=== PATIENT | female | born 1980 | race Caucasian/White ===

== ENCOUNTER 2016-04-11 13:13 | Outpatient (CLI) | payer BC ==
[2015-12-12 11:04] VITALS: BP 131/67
== END 2016-04-11 13:14 ==
LOC: LAB 13:13
PROVIDERS: ATTEND Family Medicine
DX: R73.9 Hyperglycemia, unspecified (principal)
CPT/HCPCS: 36415; 83036

== ENCOUNTER 2016-07-20 08:15 | Outpatient (CLI) | payer BC ==
[2015-12-12 11:04] VITALS: BP 131/67
[2016-07-20 09:36] LABS: eGFR (African) > 60; eGFR (Non-African) > 60
== END 2016-07-20 08:16 ==
LOC: LAB 08:15
PROVIDERS: ATTEND Family Medicine
DX: E11.9 Type 2 diabetes mellitus without complications (principal); E03.9 Hypothyroidism, unspecified
CPT/HCPCS: 36415; 80053; 80061; 83036; 84443

== ENCOUNTER 2016-08-24 18:00 | Outpatient (CLI) | payer BC ==
[2015-12-12 11:04] VITALS: BP 131/67
--- NOTE | 2016-08-24 18:28 | Diagnostic Imaging Report ---
[facility] [address] [facility] [address], [place]. [address] Report Submission Date: Aug 24, 2016 6:19:14 PM CDT Patient Study Name: DEMETRICE LANZA Date: Aug 24, 2016 6:01:46 PM CDT Modality Type: CR Gender: F Description: CHEST : 84 Institution: [facility] Physician: YOSI CEBALLOS Examination: PA and lateral chest. History: Evaluate lung lara. Findings: PA lateral chest demonstrate a normal cardiac and mediastinal silhouette. No focal infiltrate. No effusion. No blunting of the costophrenic margins. Osseous structures are appropriate for age. Impression: No acute process. Electronically signed on Aug 24, 2016 6:19:14 PM CDT by: Case LEYVA
== END 2016-08-24 18:02 ==
LOC: RAD 18:00
PROVIDERS: ATTEND Physician Assistant
DX: R05 Cough (principal)
CPT/HCPCS: 71020

== ENCOUNTER 2017-03-08 14:19 | Outpatient (CLI) | payer BC ==
[2015-12-12 11:04] VITALS: BP 131/67
== END 2017-03-08 14:20 ==
LOC: LAB 14:19
PROVIDERS: ATTEND Family Medicine
DX: E11.9 Type 2 diabetes mellitus without complications (principal)
CPT/HCPCS: 36415; 83036

== ENCOUNTER 2017-03-20 08:58 | Outpatient (CLI) | payer BC ==
[2015-12-12 11:04] VITALS: BP 131/67
--- NOTE | 2017-03-20 10:01 | Diagnostic Imaging Report ---
MAKENNA ARSHAD [facility] [address] [facility] [address] [address] Report Submission Date: Mar 20, 2017 9:25:28 AM INFORMATION SERVICES VICE PRESIDENT Patient Study Name: DEMETRICE LANZA Date: Mar 20, 2017 9:05:41 AM INFORMATION SERVICES VICE PRESIDENT Modality Type: CR Gender: F Description: LOWER EXTREMITY : 84 Institution: [facility] Physician: MAKENNA ARSHAD Examination: Plain film foot History: Injury. Findings: 3 views of the foot demonstrates an old fracture deformity involving the 5th metatarsal. No acute appearing fracture line. No dislocation. Mild degenerative changes involving the 1st metatarsophalangeal tissue lesion. Posterior calcaneal spur. No soft tissue swelling. No joint effusion. Impression: Old 5th metatarsal fracture. No acute fracture. Electronically signed on Mar 20, 2017 9:25:28 AM INFORMATION SERVICES VICE PRESIDENT by: Case LEYAV
== END 2017-03-20 09:00 ==
LOC: RAD 08:58
PROVIDERS: ATTEND Family Medicine
DX: M79.671 Pain in right foot (principal)
CPT/HCPCS: 73630

== ENCOUNTER 2017-09-21 08:53 | Outpatient (CLI) | payer BC ==
[2015-12-12 11:04] VITALS: BP 131/67
== END 2017-09-21 12:32 ==
LOC: LABRHC 08:53
PROVIDERS: ATTEND Family Medicine
DX: Z12.4 Encounter for screening for malignant neoplasm of cervix (principal)
CPT/HCPCS: 88148; G0143

== ENCOUNTER 2018-04-19 08:49 | Emergency (ER) | payer BC ==
--- NOTE | 2018-04-19 09:18 | ED Physician Documentation ---
General Adult - HISTORIAN Historian: patient - HPI Stated Complaint: Fever, chills Chief Complaint: General Adult Additional Information: Patient presents to ED with fever (100.1) and chills since this morning. Patient states her tested positive for influenza yesterday and is on Tamiflu. Onset: hours (4) Timing: still present Severity: mild Further Comments: yes - ROS CONST: fever CVS/RESP: shortness of breath, cough GI/: none MS/SKIN/LYMPH: none NEURO/PSYCH: headache - PAST HX Past History: none Other History: none Surgeries/Procedures: none Allergies/Adverse Reactions: Allergies Allergy/AdvReac Type Severity Reaction Status Date / Time ciprofloxacin [From Cipro] Allergy Severe Hives Verified 04/19/18 09:22 ciprofloxacin HCl Allergy Severe Hives Verified 04/19/18 09:22 [From Cipro] Home Medications: Ambulatory Orders Medication Instructions Recorded Oseltamivir Phosphate [Tamiflu] 75 mg PO BID #10 capsule 04/19/18 - SOCIAL HX Smoking History: non-smoker Alcohol Use: none Drug Use: none - FAMILY HX Family History: No - VITAL SIGNS Vital Signs: Vital Signs Temp Pulse Resp BP Pulse Ox 131/67 12/13/15 12:13 - REVIEWED ASSESSMENTS Nursing Assessment Reviewed: Yes Vitals Reviewed: Yes General Adult Physical Exam - PHYSICAL EXAM GENERAL APPEARANCE: no distress EENT: DENZEL NECK: normal inspection, supple RESPIRATORY: no resp distress, breath sounds normal CVS: reg rate & rhythm, heart sounds normal ABDOMEN: soft, normal bowel sounds BACK: no CVA tenderness SKIN: warm/dry EXTREMITIES: non-tender NEURO: oriented X3, motor nml Discharge Clincal Impression: Exposure to influenza Prescriptions: Oseltamivir Phosphate [Tamiflu] 75 mg PO BID #10 capsule Referrals: Deepika Manjarrez MD [Primary Care Provider] - 2 Days Additional Instructions: 1. Tylenol and/or Motrin as needed for fever/bodyaches 2. Follow up with PCP within 1 week 3. Return to ER for new or worsening symptoms Condition: Stable Disposition: 01 HOME, SELF-CARE Decision to Admit: NO Date of Decison to Admit: 04/19/18 Decision Time: 09:39
[2018-04-19 09:22] VITALS: BP 164/92
== END 2018-04-19 09:50 | disposition home or self-care (01) ==
LOC: ED 08:49
DX: Z20.828 Contact with and (suspected) exposure to other viral communicable diseases (principal); R50.9 Fever, unspecified
CPT/HCPCS: 99282; 99283

== ENCOUNTER 2018-07-18 11:37 | Outpatient (CLI) | payer BC ==
[2018-07-18 11:58] LABS: BASOPHILS % 0.8 % (0.0-1.5); EOSINOPHILS % 4.7 % (0.0-6.8); MEAN CORPUSCULAR HEMOGLOBIN 25.6 pg (28.0-34.0); MONOCYTES % 4.6 % (0.0-11.0); NEUTROPHILS # 8.5 # k/uL (1.4-7.7)
== END 2018-07-18 11:40 ==
LOC: LAB 11:37
PROVIDERS: ATTEND Nurse Practitioner Family
DX: E11.8 Type 2 diabetes mellitus with unspecified complications (principal)
CPT/HCPCS: 36415; 80053; 83036; 85025